=== PATIENT | female | born 1950 | race Caucasian/White ===

== ENCOUNTER 2016-09-24 05:25 | Observation (INO) | payer MEDICARE, BC ==
[~2016-09-24] VITALS: Ht 167.6 cm; Wt 42.2 kg
[~2016-09-24 05:25] MED LIST: UMEC1INH INH; VENTAER INH
[2016-09-24] MEDS ORDERED: VANCOMYCIN 1,000 MG/NS 250ML (for <70 kg) IV SCH ×2 (06:00)
[2016-09-24] MEDS ORDERED: METOPROLOL TARTRATE 25 MG TAB PO PRN (06:00)
[2016-09-24] MEDS ORDERED: metroNIDAZOLE 500 MG INJ 100 ML IV SCH (06:00)
[2016-09-24] MEDS ORDERED: INSULIN HUMAN REGULAR 1,000 UNITS/10 ML VIAL SQ PRN (06:00)
[2016-09-24] MEDS: LACTATED RINGER'S 1000 ML IV SCH (06:35)
[2016-09-24 06:47] VITALS: BP 137/76; PULSE 88; RESP 18; TEMP 97.6; O2SAT 96
[2016-09-24] MEDS ORDERED: BUPIVACAINE/EPINEPHRINE 0.25% PF 10 ML VIAL ONE (07:06)
[2016-09-24] MEDS ORDERED: BUPIVACAINE/EPINEPHRINE 0.25% PF 30 ML VIAL ONE (07:07)
[2016-09-24] MEDS ORDERED: MIDAZOLAM HCL 2 MG/2 ML VIAL ONE (07:17)
[2016-09-24] MEDS ORDERED: fentaNYL CITRATE 250 MCG/5 ML AMP ONE (07:17)
[2016-09-24] MEDS ORDERED: SUGAMMADEX SODIUM 200 MG/2 ML VIAL IV PUSH ONE ×2 (07:17)
[2016-09-24] MEDS ORDERED: ACETAMINOPHEN 1000 MG/100 ML VIAL IV ONE (07:19)
[2016-09-24] MEDS: SODIUM CHLORID 0.9% 500 ML IV SCH (07:30)
--- NOTE | 2016-09-24 08:38 | PD.OP ---
Operative Report Date of Surgery: Sep 24, 2016 Preoperative Diagnosis: biliary dyskinesia Postoperative Diagnosis: same Procedure: lap cony Anesthesia: general Surgeon: Danielito Johnson Master Control Operator(s): Keyla BOWDEN Operation and Findings: GB removed and sent to pathology. EBL minimal. Danielito Johnson MD Sep 24, 2016 08:38
[2016-09-24] MEDS ORDERED: SODIUM CHLORIDE 0.9% FLUSH 5 ML FLUSH IV FLUSH PRN (08:45)
[2016-09-24] MEDS ORDERED: ALBUTEROL SULFATE 90 MCG/ACT HFA 8 GM INHALER INH PRN (08:45)
[2016-09-24] MEDS ORDERED: ACETAMINOPHEN 1000 MG/100 ML VIAL IV SCH (08:45)
[2016-09-24] MEDS ORDERED: MORPHINE SULFATE 4 MG/ML INJ IV PUSH PRN (08:45)
[2016-09-24] MEDS ORDERED: *morphine SULFATE 8 MG/ML PERIprocedure ONLY ONE ×2 (08:50→10:55)
[2016-09-24] MEDS: SODIUM CHLOR 0.9% 1000 ML INJ 1,000 ML IV SCH (09:00)
[2016-09-24] MEDS: SODIUM CHLORIDE 0.9% FLUSH 5 ML FLUSH IV FLUSH SCH ×2 (09:00→21:00)
[2016-09-24] MEDS ORDERED: DO NOT ADM ANY ANTICOAGULANT DRUGS XX PRN (09:00)
[2016-09-24] MEDS ORDERED: *RESP: ALBUTEROL 2.5 MG/3 ML NEB (PRN) PERIprocedural Use ONLY NEB ONE (09:27)
--- NOTE | 2016-09-24 10:07 | EKG ---
Date Performed: 09/24/2016 Time Performed: 07:00:38 PTAGE: 66 years EKG: Sinus rhythm NORMAL ECG NO PREVIOUS TRACING DOCTOR: Km Carreon Interpretating Date/Time 09/24/2016 10:03:41
[2016-09-24] MEDS: ACETAMINOPHEN/HYDROcodone 325 MG/5 MG TAB PO PRN ×2 (11:45→22:12)
[2016-09-24] MEDS ORDERED: PHENYLEPH/NS 1000 MCG/10 ML SYR IV ONE (12:00)
[2016-09-24] MEDS ORDERED: PROPOFOL 200 MG/20 ML AMP IV ONE (12:00)
[2016-09-24] MEDS ORDERED: ONDANSETRON HCL 4 MG/2 ML VIAL IV PUSH ONE (12:00)
[2016-09-24] MEDS ORDERED: ePHEDrine/NS 50 MG/5 ML SYR IV ONE (12:00)
[2016-09-24] MEDS ORDERED: ONDANSETRON HCL 4 MG/2 ML VIAL ONE (12:57)
[2016-09-24] MEDS: ACETAMINOPHEN 1000 MG/100 ML VIAL IV SCH ×2 (13:00→17:47)
[2016-09-24] MEDS ORDERED: HYDROmorphone HCL PF 1 MG/ML VIAL ONE (15:20)
[2016-09-24 16:00] VITALS: BP 117/59; PULSE 55; RESP 16; TEMP 96.8; O2SAT 98
[2016-09-24 17:49] VITALS: O2SAT 98
[2016-09-24] MEDS ORDERED: ONDANSETRON HCL 4 MG/2 ML VIAL IV PUSH PRN (18:45)
[2016-09-24 20:00] VITALS: BP 98/47; PULSE 65; RESP 18; TEMP 96.8; O2SAT 96
[2016-09-25] VITALS: BP 91/57; PULSE 71; RESP 18; TEMP 96.4; O2SAT 99
[2016-09-25] MEDS: SODIUM CHLORID 0.9% 500 ML IV SCH (00:10)
[2016-09-25] MEDS: ACETAMINOPHEN 1000 MG/100 ML VIAL IV SCH ×3 (01:23→12:58)
[2016-09-25 04:00] VITALS: BP 93/53; PULSE 68; RESP 18; TEMP 96.1; O2SAT 99
[2016-09-25] MEDS: ACETAMINOPHEN/HYDROcodone 325 MG/5 MG TAB PO PRN (04:04)
[2016-09-25] MEDS: SODIUM CHLOR 0.9% 1000 ML INJ 1,000 ML IV SCH (04:05)
[2016-09-25] MEDS: LACTATED RINGER'S 1000 ML IV SCH (06:24)
[2016-09-25 08:00] VITALS: BP_SYST 86; BP_SYST 88; BP_DIAS 44; BP_DIAS 49; PULSE 70; RESP 16; TEMP 97.8; O2SAT 95
[2016-09-25] MEDS ORDERED: UMECLIDINIUM INH SCH (09:00)
[2016-09-25] MEDS: SODIUM CHLORIDE 0.9% FLUSH 5 ML FLUSH IV FLUSH SCH (09:00)
[2016-09-25 09:12] VITALS: BP 96/62
[2016-09-25 09:45] VITALS: O2SAT 95
[2016-09-25 12:00] VITALS: BP 103/48; PULSE 62; RESP 17; TEMP 97.7; O2SAT 100
[2016-09-25] MEDS ORDERED: HYDR-3533 PO (12:31)
--- NOTE | 2016-09-25 12:34 | HHI.DS ---
Discharge Summary Admission Date Sep 24, 2016 at 08:34 Discharge Date: Sep 25, 2016 Admitting Diagnosis biliary dyskinesia, COPD O2 dependent, failure to thrive Procedures Lap cony Brief History 66 year old with weight loss, malnutrition, abnormal HIDA scan, EF 20% and reproduction of pain with CCK. PE at Discharge Incisions all healing well. Hospital Course Admitted through [facility], had Lap cony, postop headache now resolved. Thought Morphine related H/A. Tolerating small amounts po, urinating normally. Wants to go home. Pt Condition on Discharge: Stable Discharge Disposition: Discharge Home Discharge Instructions DIET: Follow Instructions for: As Tolerated, No Restrictions Additional Diet Instructions: use nutritional supplements. Eat small frequent meals. Activities you can perform: Shower Only-No Bath Activities to Avoid: Strenuous Activity, Driving Danielito Johnson MD Sep 25, 2016 12:34
--- NOTE | 2016-09-26 10:46 | MP ---
cc: CARRIE PERKINS M.D. DATE OF SURGERY: 09/24/2016 PREOPERATIVE DIAGNOSIS Biliary dyskinesia. POSTOPERATIVE DIAGNOSIS Biliary dyskinesia. PROCEDURE Laparoscopic cholecystectomy. SURGEON Dr. Carrie Perkins. MEDIA CLERK DENNISE Lopez ANESTHESIA General. INDICATIONS This is a very pleasant 66-year-old woman with oxygen dependent COPD who still smokes 3 to 6 cigarettes a day, is unable to eat due to postprandial abdominal pain. She has had extensive workup and ultrasound of her gallbladder was negative. A HIDA scan showed a decreased ejection fraction of 20% and the patient had re-creation of severe pain after administration of cholecystokinin consistent with the pain she gets after eating. She was seen preoperatively by Dr. Eddi Hernandez who indicates she is high risk from a pulmonary standpoint, recommended she quit smoking and would be available if she needed assistance postoperatively. INTRAOPERATIVE FINDINGS Large floppy liver, large floppy gallbladder, gallbladder removed and sent to pathology. Normal-appearing appendix, normal appearing intestine, normal ovaries. Liver with some fibrinous type change to the liver capsule. Estimated blood loss minimal. Surgical procedure was assisted by my nurse practitioner. My ADJUNCT SOCIOLOGY PROFESSOR's presence was necessary throughout the case for assistance of adequate visualization of the operative field via laparoscopy. My nurse practitioner assisted me through the duration of the procedure. Her skill set was medically necessary to complete the procedure. During the surgical case the surgical orderly was working at the back table providing appropriate instrumentation and the nurse practitioner was directly assisting me. DESCRIPTION OF PROCEDURE IN DETAIL The patient was identified as Deneen Grace, taken to the operating room and placed in the supine position. Sequential compression devices were placed on bilateral lower extremities. Following induction of adequate general endotracheal anesthesia the patient's abdomen was prepped and draped in usual sterile fashion with Betadine. Time-out procedure was performed. Following completion of time-out procedure to everyone's satisfaction within the room 0.25% Marcaine with epinephrine was placed at each incision site. Small infraumbilical curvilinear incision was made with a scalpel and dissection continued posterior to level of midline fascia. The base of the umbilicus was retracted anteriorly. The infraumbilical fascia was incised and the peritoneum was entered with a hemostat. The applied medical balloon Turner trocar was placed in the peritoneal cavity, its balloon inflated with C02 insufflation until a level of 15 mmHg ensued. The patient was placed in a reverse Trendelenburg position. Two upper abdominal 5 mm trocars were placed in the peritoneal cavity under direct laparoscopic view after incision of the skin with scalpel. Gallbladder was immediately identified and was retracted superiorly and anteriorly. The gallbladder was removed from the gallbladder fossa in a dome down technique using the harmonic scalpel. Minimal adhesion inferiorly was identified. The cystic artery and cystic duct were isolated from surrounding tissues. The cystic artery was actually inferior to the duct. It was divided with a harmonic scalpel and as was the artery as evidenced by pulsatile change. The cystic duct was then ligated proximally and distally with 0-Vicryl Endoloops, divided between the Endoloops and the gallbladder removed from the peritoneal cavity through the infraumbilical fascial port incision site and passed off the field for pathologic evaluation. Evaluation of the gallbladder fossa demonstrated good hemostasis. There was no bilious or bloody drainage. The cystic duct ligature remained intact. The cystic arterial stump remained hemostatic. Brief laparoscopic visualization of the remainder of the intra-abdominal contents demonstrated normal appearing appendix in the right lower quadrant, normal appearing small bowel. Somewhat redundant colon with the transverse colon inferiorly far inferiorly. Both ovaries were visualized and appeared normal. No other intra-abdominal abnormalities were identified laparoscopically. Remaining local anesthetic was placed in the right upper quadrant. Trocars were removed under direct visualization, there was no evidence of bleeding from trocar sites. The abdomen was desufflated through the infraumbilical port which was then removed. Infraumbilical fascial incision was closed with interrupted inverted 0-Vicryl sutures. Port sites were irrigated copiously with saline. Skin incisions were approximated with 4-0 Monocryl subcuticular sutures. Dressings were applied, Mastisol, half-inch brown Steri-Strips. The patient tolerated the procedure without apparent complication. Sponge, needle and instrument counts were correct at the end of the case. MD JOSE MARIA Gallegos/MIKE /8:36 AM /10:29 AM
== END 2016-09-25 14:42 | disposition home or self-care (01) ==
LOC: HSDC 05:25 → HSDI 08:34 → N07A 15:47
PROVIDERS: ADMIT Surgery Trauma Surgery; ATTEND Surgery Trauma Surgery
DX: K82.8 Other specified diseases of gallbladder (principal); Z99.81 Dependence on supplemental oxygen; J44.9 Chronic obstructive pulmonary disease, unspecified; F17.210 Nicotine dependence, cigarettes, uncomplicated; E46 Unspecified protein-calorie malnutrition; R51 Headache; Z01.810 Encounter for preprocedural cardiovascular examination
CPT/HCPCS: 00790; 47562; 88304; 93005; 94664; G0378; J0131; J1170; J2250; J2270; J2370; J2405; J3010; J3370; J7030; J7050; J7120; J7613

== ENCOUNTER → 2017-05-09 | Outpatient (CLI) | payer MEDICARE, BC ==
[~2017-05-09] MED LIST changes: +VITA2000 PO
--- NOTE | 2017-05-09 17:35 | RADRPT ---
EXAM DATE/TIME: 05/09/2017 10:31 [facility] COMPARISON : No previous studies available for comparison. INDICATIONS : Patient with right renal mass for biopsy and cryoablation We have been asked to perform biopsy and cryoablation treatment of a complex cystic mass in the right kidney. The patient's MRI of the abdomen dated April 18, 2017 from [facility] was reviewed . This reveals a 15 mm complex cystic mass involving the lateral mid to lower pole cortex of the righ t kidney. The lesion does appear amenable to biopsy and concomitant cryoablation. I appreciate the opportunity to assist in the care of this patient. Mando Alvarez MD on May 09, 2017 at 16:34 Board Certified Radiologist. This report was verified electronically.
== END ==
LOC: HRAD 10:24
PROVIDERS: ATTEND Urology
DX: N28.89 Other specified disorders of kidney and ureter (principal)

== ENCOUNTER 2017-05-13 07:02 | Observation (INO) | payer MEDICARE, BC ==
[~2017-05-13] VITALS: Ht 165.1 cm; Wt 42.3 kg
[2017-05-13] VITALS (9 sets, daily range): BP systolic 94–145; BP diastolic 50–75; PULSE 60–90; RESP 16–19; TEMP 97.8–98; O2SAT 89–99
[2017-05-13] MEDS ORDERED: SODIUM CHLOR 0.9% 1000 ML INJ 1,000 ML IV SCH (07:30)
[2017-05-13 08:00] LABS: AUTOMATED NEUTROPHIL # 4.9 TH/MM3 (1.8-7.7); BASOPHIL % 0.5 % (0.0-2.0); EOSINOPHIL # 0.2 TH/MM3 (0-0.4); EOSINOPHIL % 1.9 % (0.0-4.0); HEMATOCRIT 36.9 % (35.0-46.0); HEMO FLAGS DIFF FINAL; LYMPH % 26.5 % (9.0-44.0); LYMPHOCYTE # 2.1 TH/MM3 (1.0-4.8); MEAN CELL VOLUME 94.1 FL (80.0-100.0); MEAN CORPUSCULAR HEMOGLOBIN 32.4 PG (27.0-34.0); MEAN CORPUSCULAR HGB CONC 34.5 % (32.0-36.0); MONO % 7.7 % (0.0-8.0); NEUT % 63.4 % (16.0-70.0); PLATELET COUNT 200 TH/MM3 (150-450); RED BLOOD COUNT 3.92 MIL/MM3 (4.00-5.30); RED CELL DISTRIBUTION WIDTH 11.9 % (11.6-17.2); WHITE BLOOD COUNT 7.8 TH/MM3 (4.0-11.0)
[2017-05-13] MEDS ORDERED: METOPROLOL TARTRATE 25 MG TAB PO PRN (08:00)
[2017-05-13] MEDS ORDERED: CHLORHEXIDINE GLUCONATE 2 % 1 PACK (2 CLOTHS) TOPICAL PRN (08:00)
[2017-05-13] MEDS ORDERED: SODIUM CHLORID 0.9% 500 ML IV PRN (08:00)
[2017-05-13] MEDS ORDERED: LACTATED RINGER'S 1000 ML IV PRN (08:00)
[2017-05-13] MEDS ORDERED: POVIDONE IODINE 5% (ANTISEPSIS KIT) 4 APPLICATIONS EACH NARE PRN (08:00)
[2017-05-13] MEDS ORDERED: INSULIN HUMAN REGULAR 1,000 UNITS/10 ML VIAL SQ PRN (08:00)
[2017-05-13 08:11] LABS: APTT (PATIENT) 26.4 SEC (24.3-30.1); INTERNATIONAL NORMALIZED RATIO 0.9 RATIO; PROTHROMBIN TIME - PATIENT 10.3 SEC (9.8-11.6)
[2017-05-13 08:31] LABS: BICARBONATE 33.9 MEQ/L (21.0-32.0)
[2017-05-13 08:33] LABS: POTASSIUM 4.6 MEQ/L (3.5-5.1)
[2017-05-13] MEDS ORDERED: PROPOFOL 200 MG/20 ML AMP IV ONE (09:27)
[2017-05-13] MEDS ORDERED: ONDANSETRON HCL 4 MG/2 ML VIAL IV PUSH ONE (09:27)
[2017-05-13] MEDS ORDERED: SODIUM CHLOR 0.9% 250 ML BAG IV ONE (09:27)
[2017-05-13] MEDS ORDERED: LEVOFLOXACIN 500 MG PREMIX INJ 100 ML IV SCH (09:30)
[2017-05-13] MEDS ORDERED: LIDOCAINE HCL 1% 20 ML VIAL ONE (10:19)
[2017-05-13] MEDS ORDERED: oxyCODONE/ACETAMINOPHEN 5 MG/325 MG TAB PO ONE ×2 (16:15→21:30)
[2017-05-13] MEDS ORDERED: oxyCODONE/ACETAMINOPHEN 5 MG/325 MG TAB PO PRN ×2 (16:15→22:00)
[2017-05-13 17:20] LABS: AUTOMATED NEUTROPHIL # 8.4 TH/MM3 (1.8-7.7); BASOPHIL % 0.3 % (0.0-2.0); HEMATOCRIT 33.2 % (35.0-46.0); LYMPHOCYTE # 0.7 TH/MM3 (1.0-4.8); MEAN CELL VOLUME 92.9 FL (80.0-100.0); MEAN CORPUSCULAR HEMOGLOBIN 32.6 PG (27.0-34.0); MEAN CORPUSCULAR HGB CONC 35.1 % (32.0-36.0); MONO % 1.9 % (0.0-8.0); NEUT % 89.8 % (16.0-70.0); PLATELET COUNT 319 TH/MM3 (150-450); RED BLOOD COUNT 3.58 MIL/MM3 (4.00-5.30); RED CELL DISTRIBUTION WIDTH 12.3 % (11.6-17.2); WHITE BLOOD COUNT 9.4 TH/MM3 (4.0-11.0)
[2017-05-13 17:21] LABS: HEMO FLAGS AUTO DIFF
[2017-05-13 17:48] LABS: PLATELET ESTIMATE SMEAR NORMAL (NORMAL)
[2017-05-13 17:49] LABS: PLATELET MORPHOLOGY NORMAL (NORMAL); SCAN/DIFF AUTO DIFF CONFIRMED
[2017-05-13] MEDS ORDERED: ONDANSETRON HCL 4 MG/2 ML VIAL ONE (18:12)
--- NOTE | 2017-05-13 19:07 | HHI.HP ---
[facility] Alea Gandara MD Admission Diagnosis Diagnoses: Chief Complaint: Post procedure observation. Travel History International Travel<30 Days: No Contact w/Intl Traveler <30 Da: No Traveled to Known Affected Are: No History of Present Illness Ms. Grace is a 67 year old female with a history of COPD who underwent elective cryoablation and CT guided biopsy of a right renal mass and subsequently developed severe headache, weakness, nausea and dizziness today 05/13. During a work up for abdominal pain, a CT abdomen/pelvis from March 2017 showed a 1.4cm enhancing lesion involving lower pole of the right kidney. This mass was suspicious for malignancy. A subsequent MRI abdomen indicated this renal mass to be a complex cyst. Patient was referred to Dr. Kumar (Urology) who opinioned that the lesion could potentially be a cystic renal cell carcinoma. Patient was then referred to IR for cryoablation as well as biopsy. Patient denies any chest pain, shortness of breath at the time of this interview. However, she continues to have nausea and dizziness. Denies any cough , fever, chills. Hospitalist service was consulted to admit patient for overnight observation. Review of Systems Except as stated in HPI: all other systems reviewed are Neg Past Family Social History Past Medical History COPD - O2 dependent. Past Surgical History Cholecystectomy Sep 2016 Reported Medications Incruse Ellipta inh 62.5 mcg INH daily Albuterol HFA 18 Vitamin D3 2000 units Qday. Allergies: Coded Allergies: penicillin G (Unverified Allergy, Mild, SWELLING, 05/01/17) Family History Father - ID at the age of 59. Mother - Emphysema Sister - Uterus malignancy. No history of Alzheimer's or Parkinson's. Social History She currently smokes and trying to quit smoking. Denies using alcohol or illicit drugs. Physical Exam Vital Signs Vital Signs Date Time Temp Pulse Resp B/P (MAP) Pulse Ox O2 Delivery O2 Flow Rate FiO2 05/13/17 18:15 70 19 124/74 (91) 99 05/13/17 17:15 67 18 109/73 (85) 99 05/13/17 17:11 17 05/13/17 16:15 69 18 143/72 (95) 99 05/13/17 15:45 64 19 145/50 (81) 99 05/13/17 15:15 60 18 135/60 (85) 99 05/13/17 15:00 98.0 66 18 137/75 (95) 96 05/13/17 14:45 97.3 56 12 131/58 (82) 100 Nasal Cannula 2 05/13/17 14:30 61 12 131/60 (83) 100 Nasal Cannula 2 05/13/17 14:15 96.8 57 12 132/59 (83) 100 Nasal Cannula 2 05/13/17 14:00 58 12 137/65 (89) 100 Nasal Cannula 2 05/13/17 13:45 61 12 135/64 (87) 100 Nasal Cannula 2 05/13/17 13:30 96.6 72 12 143/72 (95) 100 Nasal Cannula 2 05/13/17 07:33 89 Room Air 05/13/17 07:24 97.8 90 18 94/65 (75) 89 Physical Exam GENERAL: Thin elderly female, in no acute distress. SKIN: No rashes, ecchymoses or lesions. Warm and dry. HEAD: Atraumatic. Normocephalic. No temporal or scalp tenderness. EYES: Pupils equal round and reactive. No injection or drainage. ENT: Nose without bleeding, purulent drainage or septal hematoma. Airway patent. NECK: Trachea midline. No lymphadenopathy. Supple, nontender, no meningeal signs. CARDIOVASCULAR: Regular rate and rhythm without murmurs, gallops, or rubs. No JVD. RESPIRATORY: Moderate air entry. No appreciable wheezing, crackles. GASTROINTESTINAL: Abdomen soft, non-tender, nondistended. No guarding. MUSCULOSKELETAL: Extremities without clubbing, cyanosis, or edema. NEUROLOGICAL: Awake and alert. Cranial nerves II through XII intact. No focal neurological deficits. Laboratory Laboratory Tests Test 05/13/17 07:40 05/13/17 16:25 White Blood Count 7.8 9.4 Red Blood Count 3.92 3.58 Hemoglobin 12.7 11.7 Hematocrit 36.9 33.2 Mean Corpuscular Volume 94.1 92.9 Mean Corpuscular Hemoglobin 32.4 32.6 Mean Corpuscular Hemoglobin Concent 34.5 35.1 Red Cell Distribution Width 11.9 12.3 Platelet Count 200 319 Mean Platelet Volume 9.1 11.2 Neutrophils (%) (Auto) 63.4 89.8 Lymphocytes (%) (Auto) 26.5 8.0 Monocytes (%) (Auto) 7.7 1.9 Eosinophils (%) (Auto) 1.9 0.0 Basophils (%) (Auto) 0.5 0.3 Neutrophils # (Auto) 4.9 8.4 Lymphocytes # (Auto) 2.1 0.7 Monocytes # (Auto) 0.6 0.2 Eosinophils # (Auto) 0.2 0.0 Basophils # (Auto) 0.0 0.0 CBC Comment DIFF FINAL AUTO DIFF Differential Comment AUTO DIFF CONFIRMED Prothrombin Time 10.3 Prothromb Time International Ratio 0.9 Activated Partial Thromboplast Time 26.4 Blood Urea Nitrogen 19 Creatinine 0.81 Random Glucose 116 Calcium Level 9.3 Sodium Level 138 Potassium Level 4.6 Chloride Level 97 Carbon Dioxide Level 33.9 Anion Gap 7 Estimat Glomerular Filtration Rate 70 Platelet Estimate NORMAL Platelet Morphology Comment NORMAL Red Cell Morphology Comment NORMAL Result Diagram: 05/13/17 1625 05/13/17 0740 Caprini VTE Risk Assessment Caprini VTE Risk Assessment: Mod/High Risk (score >= 2) Caprini Risk Assessment Model Point Value = 1 Point Value = 2 Point Value = 3 Point Value = 5 Age 41-60 Minor surgery BMI > 25 kg/m2 Swollen legs Varicose veins or History of unexplained or recurrent spontaneous Oral contraceptives or hormone replacement Sepsis (< 1 month) Serious lung disease, including pneumonia (< 1 month) Abnormal pulmonary function Acute myocardial infarction Congestive heart failure (< 1 month) History of inflammatory bowel disease Medical patient at bed rest Age 61-74 Arthroscopic surgery Major open surgery (> 45 min) Laparoscopic surgery (> 45 min) Malignancy Confined to bed (> 72 hours) Immobilizing plaster cast Central venous access Age >= 75 History of VTE Family history of VTE Factor V Leiden Prothrombin [id number] Lupus anticoagulant Anticardiolipin antibodies Elevated serum homocysteine Heparin-induced thrombocytopenia Other congenital or acquired thrombophilia Stroke (< 1 month) Elective arthroplasty Hip, pelvis, or leg fracture Acute spinal cord injury (< 1 month) Prophylaxis Regimen Total Risk Factor Score Risk Level Prophylaxis Regimen 0-1 Low Early ambulation 2 Moderate Order ONE of the following: *Sequential Compression Device (SCD) *Heparin 5000 units SQ BID 3-4 Higher Order ONE of the following medications: *Heparin 5000 units SQ TID *Enoxaparin/Lovenox 40 mg SQ daily (WT < 150 kg, CrCl > 30 mL/min) *Enoxaparin/Lovenox 30 mg SQ daily (WT < 150 kg, CrCl > 10-29 mL/min) *Enoxaparin/Lovenox 30 mg SQ BID (WT < 150 kg, CrCl > 30 mL/min) AND/OR *Sequential Compression Device (SCD) 5 or more Highest Order ONE of the following medications: *Heparin 5000 units SQ TID (Preferred with Epidurals) *Enoxaparin/Lovenox 40 mg SQ daily (WT < 150 kg, CrCl > 30 mL/min) *Enoxaparin/Lovenox 30 mg SQ daily (WT < 150 kg, CrCl > 10-29 mL/min) *Enoxaparin/Lovenox 30 mg SQ BID (WT < 150 kg, CrCl > 30 mL/min) AND *Sequential Compression Device (SCD) Assessment and Plan Problem List: (1) Cyst of right kidney ICD Code: N28.1 - Cyst of kidney, acquired (2) COPD (chronic obstructive pulmonary disease) ICD Code: J44.9 - Chronic obstructive pulmonary disease, unspecified Assessment and Plan Ms. Grace is a 67 year old female with a history of COPD and recently found right renal cyst who underwent cryoablation and biopsy and subsequently developed significant headache, dizziness, nausea. - Right renal cyst - Suspicious for cystic renal cell carcinoma - Dr. Kumar has been following in the outpatient setting. - s/p cryoablation and bx. - Nausea - Dizziness - Headache - Possibly related to anesthesia. - Will continue NS @100cc/hour. - Supportive treatments with Zofran for nausea, Acetaminophen for headache. - COPD - Start DuoNeb PRN Q4hrs. Full code. SCDs. Will consider Chemical DVT prophylaxis if patient is expected to stay in the hospital for more than 24-48 hrs. Anne-Marie Caldwell DO May 13, 2017 19:07
[2017-05-13] MEDS ORDERED: SODIUM CHLORIDE 0.9% FLUSH 10 ML FLUSH IV FLUSH PRN (19:15)
[2017-05-13] MEDS ORDERED: BISACODYL 10 MG SUPP RECTAL PRN (19:15)
[2017-05-13] MEDS ORDERED: ACETAMINOPHEN 325 MG TAB PO PRN (19:15)
[2017-05-13] MEDS ORDERED: SENNOSIDES 8.6 MG TAB PO PRN (19:15)
[2017-05-13] MEDS ORDERED: LACTULOSE SYRUP 20 GM/30 ML CUP PO PRN (19:15)
[2017-05-13] MEDS ORDERED: ONDANSETRON HCL 4 MG/2 ML VIAL IVP PRN (19:15)
[2017-05-13] MEDS ORDERED: MAGNESIUM HYDROXIDE SUSP 30 ML CUP PO PRN (19:15)
[2017-05-13] MEDS ORDERED: RESP: ALBUTEROL 2.5 MG/IPRATROPIUM 0.5 MG NEB (PRN) NEB (19:15)
[2017-05-13] MEDS ORDERED: NALOXONE HCL 0.4 MG/ML AMP IV PRN (19:15)
[2017-05-13] MEDS ORDERED: PROCHLORPERAZINE 25 MG SUPP RECTAL PRN (19:15)
[2017-05-13] MEDS ORDERED: DO NOT ADM ANY ANTICOAGULANT DRUGS PRN (20:45)
[2017-05-13] MEDS: DOCUSATE SODIUM 50 MG/SENNA 8.6 MG TAB PO SCH (21:00)
[2017-05-13] MEDS: SODIUM CHLORIDE 0.9% FLUSH 10 ML FLUSH IV FLUSH SCH (21:00)
[2017-05-13] MEDS: SODIUM CHLOR 0.9% 1000 ML INJ 1,000 ML IV SCH (21:24)
[2017-05-14 04:09] VITALS: BP 118/64; PULSE 98; RESP 18; TEMP 97.9; O2SAT 95
[2017-05-14 07:37] VITALS: O2SAT 92
[2017-05-14 08:44] VITALS: BP 96/47; PULSE 56; RESP 16; TEMP 98.6; O2SAT 99
[2017-05-14 08:56] LABS: AUTOMATED NEUTROPHIL # 3.7 TH/MM3 (1.8-7.7); BASOPHIL % 0.4 % (0.0-2.0); EOSINOPHIL # 0.1 TH/MM3 (0-0.4); EOSINOPHIL % 1.3 % (0.0-4.0); HEMATOCRIT 30.3 % (35.0-46.0); HEMO FLAGS DIFF FINAL; LYMPH % 31.3 % (9.0-44.0); MEAN CELL VOLUME 94.4 FL (80.0-100.0); MEAN CORPUSCULAR HEMOGLOBIN 32.3 PG (27.0-34.0); MEAN CORPUSCULAR HGB CONC 34.2 % (32.0-36.0); MONO % 9.7 % (0.0-8.0); NEUT % 57.3 % (16.0-70.0); PLATELET COUNT 154 TH/MM3 (150-450); RED BLOOD COUNT 3.21 MIL/MM3 (4.00-5.30); RED CELL DISTRIBUTION WIDTH 11.8 % (11.6-17.2); WHITE BLOOD COUNT 6.5 TH/MM3 (4.0-11.0)
[2017-05-14] MEDS: SODIUM CHLOR 0.9% 1000 ML INJ 1,000 ML IV SCH (08:59)
[2017-05-14] MEDS: DOCUSATE SODIUM 50 MG/SENNA 8.6 MG TAB PO SCH (09:00)
[2017-05-14] MEDS: SODIUM CHLORIDE 0.9% FLUSH 10 ML FLUSH IV FLUSH SCH (09:00)
[2017-05-14 09:06] LABS: BICARBONATE 30.4 MEQ/L (21.0-32.0); POTASSIUM 3.9 MEQ/L (3.5-5.1)
[2017-05-14 11:27] VITALS: BP 104/51; PULSE 64; RESP 16; TEMP 98; O2SAT 97
--- NOTE | 2017-05-14 12:05 | HHI.PR ---
Subjective Remarks Follow up for right renal cyst s/p bx, cryoablation. Patient reports no N/V but reports persistent headache. She wants to go home and feels that as long as she stays in the hospital, she will have headache. No fever, chills. Objective Vitals Vital Signs Date Time Temp Pulse Resp B/P (MAP) Pulse Ox O2 Delivery O2 Flow Rate FiO2 05/14/17 11:27 98.0 64 16 104/51 (68) 97 05/14/17 09:20 Nasal Cannula 3.00 05/14/17 08:44 98.6 56 16 96/47 (63) 99 05/14/17 07:37 92 Nasal Cannula 3.00 05/14/17 04:09 97.9 98 18 118/64 (82) 95 05/14/17 03:33 Nasal Cannula 3.00 05/13/17 23:49 98.0 68 16 105/60 (75) 98 05/13/17 20:39 98.0 67 16 102/57 (72) 98 05/13/17 18:15 70 19 124/74 (91) 99 05/13/17 17:15 67 18 109/73 (85) 99 05/13/17 17:11 17 05/13/17 16:15 69 18 143/72 (95) 99 05/13/17 15:45 64 19 145/50 (81) 99 05/13/17 15:15 60 18 135/60 (85) 99 05/13/17 15:00 98.0 66 18 137/75 (95) 96 05/13/17 14:45 97.3 56 12 131/58 (82) 100 Nasal Cannula 2 05/13/17 14:30 61 12 131/60 (83) 100 Nasal Cannula 2 05/13/17 14:15 96.8 57 12 132/59 (83) 100 Nasal Cannula 2 05/13/17 14:00 58 12 137/65 (89) 100 Nasal Cannula 2 05/13/17 13:45 61 12 135/64 (87) 100 Nasal Cannula 2 05/13/17 13:30 96.6 72 12 143/72 (95) 100 Nasal Cannula 2 I/O 05/13/17 05/13/17 05/13/17 05/14/17 05/14/17 05/14/17 07:00 15:00 23:00 07:00 15:00 23:00 Intake Total 380 ml 800 ml Balance 380 ml 800 ml Intake IV Total 380 ml 800 ml Result Diagram: 05/14/1781305/14/17813 Objective Remarks GENERAL: AOx3, NAD SKIN: Warm and dry. HEAD: Normocephalic. EYES: No scleral icterus. No injection or drainage. NECK: Supple, trachea midline. No JVD or lymphadenopathy. CARDIOVASCULAR: Regular rate and rhythm without murmurs, gallops, or rubs. RESPIRATORY: Moderate air entry, No appreciable wheezing. GASTROINTESTINAL: Abdomen soft, non-tender, nondistended. MUSCULOSKELETAL: No cyanosis, or edema. BACK: Nontender without obvious deformity. No CVA tenderness. Procedures Right renal cyst - cryoablation, bx. A/P Problem List: (1) Cyst of right kidney ICD Code: N28.1 - Cyst of kidney, acquired (2) COPD (chronic obstructive pulmonary disease) ICD Code: J44.9 - Chronic obstructive pulmonary disease, unspecified Assessment and Plan Ms. Grace is a 67 year old female with a history of COPD and recently found right renal cyst who underwent cryoablation and biopsy and subsequently developed significant headache, dizziness, nausea. - Right renal cyst - Suspicious for cystic renal cell carcinoma - Dr. Kumar has been following in the outpatient setting. - s/p cryoablation and bx. - Nausea - Dizziness - Headache - Offered Fioricet. However, patient does not want to take any other meds. Wants to go home. - Supportive treatments with Zofran for nausea, Acetaminophen for headache. - Discussed with IR - Dr. Alvarez who cleared for discharge from his standpoint. - COPD - DuoNeb PRN Q4hrs. Full code. Discharge patient to home Condition on discharge: Improved Regular Diet as tolerated Ad Flory activity Rx written: None. Follow-up with primary care physician within one week. IR will see her next week. Anne-Marie Caldwell DO May 14, 2017 12:05
--- NOTE | 2017-05-16 14:29 | RADRPT ---
EXAM DATE/TIME: 05/13/2017 11:13 [facility] COMPARISON: No previous studies available for comparison. INDICATIONS : Right renal mass BIOPSY SITE: Right kidney Anesthesia and pain control was provided by the Anesthesia department. Prophylactic antibiotics were administered with appropriate pre-procedure timing. DEVICE(S): 1.) 16 gauge Temno core biopsy needle MEDICAL HISTORY : Chronic obstructive pulmonary disease. SURGICAL HISTORY : Cholecystectomy ENCOUNTER: Initial ACUITY: 1 day PAIN SCORE: 0/10 LOCATION: Right flank A total of one core specimen(s) were obtained and sent to the laboratory for pathologic evaluation. PROCEDURE: 1. CT guided renal biopsy. Prior to the procedure informed consent was obtained. Any appropriate prior imaging studies were rev iewed. Using automated exposure control and adjustment of the mA and/or kV according to patient size, radiat ion dose was kept as low as reasonably achievable to obtain optimal diagnostic quality images. DICOM format image data is available electronically for review and comparison. The site was prepped in a sterile fashion. Full sterile technique was used, including cap, mask, daniel rile gloves and gown and a large sterile sheet. Hand hygiene and 2% chlorhexidine and/or betadine/al cohol prep was utilized per protocol for cutaneous antisepsis. The skin and subcutaneous tissues wer e infiltrated with local anesthetic solution. With CT guidance the previously identified target was localized. Biopsy was performed using the presc ribed needle as above. Adequate hemostasis was obtained with compression at the puncture site. Follow-up CT scan reveals no hemorrhage. The patient tolerated the procedure well and there were no complications. The patient was returned to the Radiology Outpatient Unit in stable condition. CONCLUSION: Uncomplicated CT guided biopsy. The pathology results indicated presence of clear cells suspicious for renal cell carcinoma, however quantity insufficient for definitive diagnosis. 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 Mando Alvarez MD on May 16, 2017 at 14:13 Board Certified Radiologist. This report was verified electronically.
--- NOTE | 2017-05-16 14:35 | RADRPT ---
EXAM DATE/TIME: 05/13/2017 11:13 INDICATIONS : Right renal mass Anesthesia and pain control was provided by the Anesthesia department. DEVICE(S): 1.) 16 gauge Cryoablation probe MEDICAL HISTORY : Chronic obstructive pulmonary disease. SURGICAL HISTORY : Cholecystectomy ENCOUNTER: Initial ACUITY: 1 day PAIN SCORE: 0/10 LOCATION: Right flank PROCEDURE : 1. CT guided cryoablation. Under sterile conditions and using aseptic technique with CT guidance the mass was localized and sati sfactory approach was taken to access the lesion. Using automated exposure control and adjustment of the mA and/or kV according to patient size, radiation dose was kept as low as reasonably achievable to obtain optimal diagnostic quality images. DICOM format image data is available electronically for review and comparison. wunderloop Cryoprobes were employed using percutaneous technique employing the prescribed probes. A freeze-thaw, freeze-thaw technique was employed and serial imaging demonstrated an ice ball encomp assing the entire lesion. Post procedure images demonstrate expected postoperative changes without e vidence of hematoma. CONCLUSION: Uncomplicated cryoablation as above. Mando Alvarez MD on May 16, 2017 at 14:28 Board Certified Radiologist. This report was verified electronically.
== END 2017-05-14 13:56 | disposition home or self-care (01) ==
LOC: HRAD 07:02 → HRIP 07:03 → HRAD 19:34 → UNDOADMOB 19:35 → NEPFCDU 19:35 → NEDA 19:35
PROVIDERS: ADMIT Hospitalist; ATTEND Hospitalist
DX: N28.89 Other specified disorders of kidney and ureter (principal); N28.1 Cyst of kidney, acquired; J44.9 Chronic obstructive pulmonary disease, unspecified
CPT/HCPCS: 50200; 50593; 77012; 77013; 80048; 85025; 85610; 85730; 88305; 96360; 96365; C2618; G0378; J2405; J3010; J7030; J7040; J7050; J7120; 96361

== ENCOUNTER 2018-04-18 05:46 | Inpatient (IN) ==
[2018-04-18] MEDS ORDERED: ALPRAZolam 0.5 MG Tablet PO ONE (06:19)
[2018-04-18 06:43] LABS: Baso # (Auto) 0.1 th/mm3 (0.0-0.2); Baso % (Auto) 0.3 % (0.0-2.0); Eos % (Auto) 0.2 % (0.0-4.0); Hematocrit 33.7 % (35.0-46.0); Hemoglobin 11.1 gm/dL (11.6-15.3); Lymph # (Auto) 1.8 th/mm3 (1.0-4.8); Lymph % (Auto) 9.6 % (9.0-44.0); Mean Corpuscular HGB Conc 32.8 % (32.0-36.0); Mean Corpuscular Volume 100.5 fL (80.0-100.0); Mean Platelet Volume 8.1 fL (7.0-11.0); Mono # (Auto) 0.3 th/mm3 (0.0-0.9); Mono % (Auto) 1.6 % (0.0-8.0); Neut # (Auto) 16.9 th/mm3 (1.8-7.7); Neut % (Auto) 88.3 % (16.0-70.0); Platelet Count 279 th/mm3 (150-450); Red Blood Count 3.35 mil/mm3 (4.00-5.30); Red Cell Distribution Width 15.4 % (11.6-17.2); White Blood Count 19.1 th/mm3 (4.0-11.0)
--- NOTE | 2018-04-18 06:52 | XR ---
EXAM DATE: 04/18/2018 6:40 AM EDT AGE/SEX: 68 years / Female INDICATIONS: Dyspnea. CLINICAL DATA: This is the patient's initial encounter. Patient reports that signs and symptoms have been present for 1 day and indicates a pain score of 0/10. MEDICAL/SURGICAL HISTORY: Chronic obstructive pulmonary disease. Cholecystectomy. COMPARISON: [facility], CT CHEST W/O CONTRAST, 09/05/2017. . FINDINGS: Portable AP view of the chest demonstrates a normal size cardiac silhouette. There is dense airspace opacity/consolidation in the left mid and peripheral lower lung zone. This finding is new since the p rior study. No pneumothorax is visualized and no pleural effusion is seen. There is stable lucency in the upper lung zones characteristic of emphysema. Bones and soft tissues demonstrate no acute abnorm ality. CONCLUSION: 1. There is severe airspace consolidation in the left mid and lower lung zone. This could represent a pneumonia in the appropriate clinical setting. Recommend follow-up imaging following appropriate tr eatment to confirm resolution. 2. Stable background lung changes characteristic of emphysema. Electronically signed by: Mando Yousif MD 04/18/2018 6:51 AM EDT
[2018-04-18 07:10] LABS: Albumin 3.5 g/dL (3.4-5.0); Anion Gap 6 meq/L (5-15); Aspartate Aminotransferase 21 U/L (15-37); Blood Urea Nitrogen 24 mg/dL (7-18); Calcium 9.1 mg/dL (8.5-10.1); Carbon Dioxide 44.5 meq/L (21.0-32.0); Chloride 86 meq/L (98-107); Glomerular Filtration Rate 86 mL/min (>89); Glucose,Random 177 mg/dL (74-106); Potassium 3.8 meq/L (3.5-5.1); Sodium 136 meq/L (136-145)
[2018-04-18 07:17] LABS: Alanine Aminotransferase 31 U/L (10-53); Alkaline Phosphatase 103 U/L (45-117); Total Protein 6.5 g/dL (6.4-8.2)
[2018-04-18] MEDS ORDERED: Sod Chloride 0.9% Inj 1,000 ML IV.SIG ONE (07:49)
[2018-04-18] MEDS ORDERED: Azithromycin Inj 500 MG in Sodium Chlor 0.9% Inj 250 ML IV.SIG ONE (07:51)
--- NOTE | 2018-04-18 07:59 | ED ---
HPI General Chief complaint: Fall Stated complaint: Body Pain Time Seen by Provider: 04/18/18 07:34 Source: patient Mode of arrival: ambulatory Limitations: no limitations History of Present Illness HPI Narrative: 68-year-old female complaint generalized malaise and weakness and chest pain. Patient has history of COPD on hospice. Patient got up last night around 4 AM and fell on the floor last night. Patient started having chest pain across the anterior chest wall last night. Patient states that gave patient nitroglycerin and morphine with some relief of the pain. Patient denies any injury from the fall. Patient denies headache. Patient denies any neck pain. Patient denies any shortness of breath coughing congestion. Patient denies abdominal pain. Patient denies any focal weakness or numbness of the extremity. Patient has history of intermittent chest pain recently. Hospice physician gave patient prescription for isosorbide and nitroglycerin which she has been taking as directed. Patient also newly diagnosed with hyperglycemia and put on metformin recently. Complaint: generalized weakness Onset (ago): day(s) Duration: constant Location: generalized Migration: none Severity: moderate Severity scale (1-10): 5 Relieving factors: none Exacerbating factors: none Related Data Home Medications Medication Instructions Recorded Confirmed alprazolam 0.5 mg PO Q4HR PRN 04/18/18 04/18/18 dexamethasone 8 mg PO DAILY 04/18/18 04/18/18 furosemide 20 mg PO DAILY 04/18/18 04/18/18 isosorbide mononitrate 30 mg PO HS 04/18/18 04/18/18 lorazepam 1 mg PO HS 04/18/18 04/18/18 metformin 500 mg PO BID 04/18/18 04/18/18 nitroglycerin 0.4 mg SUBLINGUAL Q5-15M PRN 04/18/18 04/18/18 spironolactone 25 mg PO DAILY 04/18/18 04/18/18 Allergies Allergy/AdvReac Type Severity Reaction Status Date / Time penicillin G Allergy Mild SWELLING Verified 04/18/18 05:58 Review of Systems ROS: all other systems reviewed are negative [facility] Medical History Medical History Anxiety (Acute) COPD (chronic obstructive pulmonary disease) (Acute) Dyspnea (Acute) Edema (Acute) Social History Social History Substance History: No History of Abuse Smoking Status: Former smoker How Often Do You Have a Drink Containing Alcohol: Never Recent Travel in [place] within the Last 8 Weeks: No Recent Out of Country Travel within the Last 8 Weeks: No Immunization History Tetanus Immunization: Unsure Hx Influenza Vaccine This Season: Yes Exam Narrative Exam Narrative: GENERAL: Well-nourished, well-developed patient. SKIN: Focused skin assessment warm/dry. HEAD: Normocephalic. EYES: No scleral icterus. No injection or drainage. NECK: Supple, trachea midline. No JVD or lymphadenopathy. CARDIOVASCULAR: Regular rate and rhythm without murmurs, gallops, or rubs. RESPIRATORY: Breath sounds equal bilaterally. No accessory muscle use. Few rhonchi left lung. No wheezes. GASTROINTESTINAL: Abdomen soft, non-tender, nondistended. MUSCULOSKELETAL: No cyanosis, or edema. BACK: Nontender without obvious deformity. No CVA tenderness. Neurologic exam: Patient with lethargy however answer questions appropriately. Patient moves all extremity well. No obvious focal neurological deficit. Course Initial Documented Vital Signs Temperature 97.6 F 04/18/18 05:49 Pulse Rate 121 H 04/18/18 05:49 Respiratory Rate 22 04/18/18 05:49 Blood Pressure 141/69 H 04/18/18 05:49 Pulse Oximetry 87 L 04/18/18 05:49 Last Documented Vital Signs Temperature 97.8 F 04/18/18 07:00 Pulse Rate 107 H 04/18/18 07:00 Respiratory Rate 22 04/18/18 07:00 Blood Pressure 129/67 04/18/18 07:00 Pulse Oximetry 97 04/18/18 07:00 Medical Decision Making [facility] Narrative Medical decision making narrative: 68-year-old female with history of COPD on hospice complaint generalized weakness and fell last night. Patient has intermittent chest pain recently including after the fall last night. Chest x- ray shows consolidation left lung. Normal saline solution 1 L IV bolus. Vancomycin 1 g IV. Zithromax 5 mg IV. Differential Diagnosis Differential Diagnosis: Differential diagnosis including sepsis, pneumonia, angina, CT, PE, pneumothorax. Lab Data Result diagrams: 04/18/18 06:10 04/18/18 06:10 Lab Results 04/18/18 04/18/18 04/18/18 Range/Units 06:10 06:10 06:10 WBC 19.1 H (4.0-11.0) th/mm3 RBC 3.35 L (4.00-5.30) mil/mm3 Hgb 11.1 L (11.6-15.3) gm/dL Hct 33.7 L (35.0-46.0) % MCV 100.5 H (80.0-100.0) fL MCH 33.0 (27.0-34.0) pg MCHC 32.8 (32.0-36.0) % RDW 15.4 (11.6-17.2) % Plt Count 279 (150-450) th/mm3 MPV 8.1 (7.0-11.0) fL Neut % (Auto) 88.3 H (16.0-70.0) % Lymph % (Auto) 9.6 (9.0-44.0) % [place] % (Auto) 1.6 (0.0-8.0) % Eos % (Auto) 0.2 (0.0-4.0) % Baso % (Auto) 0.3 (0.0-2.0) % Neut # (Auto) 16.9 H (1.8-7.7) th/mm3 Lymph # (Auto) 1.8 (1.0-4.8) th/mm3 [place] # (Auto) 0.3 (0.0-0.9) th/mm3 Eos # (Auto) 0.0 (0.0-0.4) th/mm3 Baso # (Auto) 0.1 (0.0-0.2) th/mm3 WBC Differential . Differential Comment Auto diff final Sodium 136 (136-145) meq/L Potassium 3.8 (3.5-5.1) meq/L Chloride 86 L (98-107) meq/L Carbon Dioxide 44.5 H (21.0-32.0) meq/L Anion Gap 6 (5-15) meq/L BUN 24 H (7-18) mg/dL Creatinine 0.68 (0.50-1.00) mg/dL Estimated GFR 86 L (>89) mL/min Random Glucose 177 H (74-106) mg/dL Calcium 9.1 (8.5-10.1) mg/dL Total Bilirubin 0.7 (0.2-1.0) mg/dL AST 21 (15-37) U/L ALT 31 (10-53) U/L Alkaline Phosphatase 103 (45-117) U/L Troponin I Less than 0.02 L (0.02-0.05) ng/mL B-Natriuretic Peptide 22 (0-100) pg/mL Total Protein 6.5 (6.4-8.2) g/dL Albumin 3.5 (3.4-5.0) g/dL Imaging Data Radiologist's impression: Chest X-Ray 04/18/18 06:12 CONCLUSION: 1. There is severe airspace consolidation in the left mid and lower lung zone. This could represent a pneumonia in the appropriate clinical setting. Recommend follow-up imaging following appropriate treatment to confirm resolution. 2. Stable background lung changes characteristic of emphysema. Discharge Plan Discharge Disposition Patient Disposition: 30 Still Patient Discharge Details Diagnosis: Sepsis, Pneumonia, Chest pain Physicians Team ED Provider: Bruno Jacobson Primary Care Provider: [facility] Rxs /Orders / Referrals /Forms Prescriptions: No Action metformin 500 mg Tablet 500 mg PO BID RF: 0 isosorbide mononitrate 30 mg Tablet Extended Release 24 Hr 30 mg PO HS RF: 0 spironolactone 25 mg Tablet 25 mg PO DAILY RF: 0 alprazolam 0.5 mg Tablet 0.5 mg PO Q4HR PRN (Reason: Anxiety) RF: 0 dexamethasone 4 mg Tablet 8 mg PO DAILY RF: 0 furosemide 20 mg Tablet 20 mg PO DAILY RF: 0 lorazepam 1 mg Tablet 1 mg PO HS RF: 0 nitroglycerin 0.4 mg Tablet, Sublingual 0.4 mg SUBLINGUAL Q5-15M PRN (Reason: Chest Pain) RF: 0 Discharge Interventions Interventions: Vital Signs Last Done: 04/18/18 07:00 Status ED Status: With Doctor
[2018-04-18] MEDS ORDERED: Vancomycin Inj 1 GM/200 ML PIGGYBACK IV.SIG SCH (08:00)
[2018-04-18] MEDS ORDERED: Vancomycin Inj 1,000 MG in Sodium Chlor 0.9% Inj 250 ML IV.SIG ONE (09:00)
[2018-04-18] MEDS ORDERED: ALPRAZolam 0.5 MG Tablet PO PRN (09:24)
--- NOTE | 2018-04-18 09:25 | P.HPFP ---
History of Present Illness Primary Care Physician: Hospice <Helena Gutierrez - 04/19/18 10:27> Hospice <Yazmin Rodriguez - 04/18/18 09:24> History of Present Illness: 68 year old female with the PMH of severe COPD diagnosed in August with 17% lung capacity, on Hospice since September ( determined 6 months to live), presented to the ED due to an unwitnessed fall that happened this morning at 4am with associated chest pain. The majority of this history was given by the sister as patient was unable to communicate due to excessive work of breathing. Per sister, she states that she was staying over the patients house that night and around 4:15 am, heard a call from her sister and saw that she had fell to the ground as she was trying to sit in her chair in the living room. The patient was alert at the time, stated that she did not hit her head, only hit her hip, and that she did not lose any consciousness. The sister then called the [facility] express hotline, who arrived at the house and helped the patient get back into her living room chair. After sitting in the chair, the patient then started complaining of substernal chest pain, the sister then gave her 3 doses of nitroglycerin alongside morphine which have been provided by the hospice which did not seem to relieve her chest pain. She was then brought to the emergency room for further evaluation due to the chest pain. This is her 6th fall since the end of February this year. Per sister she states that she gets up in the middle of the night and usually falls between the hours of 2 and 6 AM when she gets up to walk from her bedroom to her living room. The patient lives at home by herself, but the sister comes by daily to help her. She has also been having increased confusion over the past couple of weeks, today being the worse as she is unable to fully engage in conversation due to work of breathing. Over the past week she has been complaining of chest congestion with mucus but denies any cough. She is on 5 L of oxygen at home for 24 hours and takes nebulized medications. She has been eating well but not drinking adequately per sister (1 quart a day). bowel movements and urinary frequency have been normal. Last Hospitalizations was a couple weeks ago at [facility] due to a fall and the patient had a right eye abrasion. She was recently started on Lasix and spironolactone 3 days ago due to leg swelling that started a couple weeks ago. She has been eating well but not drinking adequately per sister ( 1 quart a day). Allergies: Penicillin (unsure of reaction per sister) Hospice physician: Dr. Weathers Return Clerk: Dr Rodríguez <Yazmin Rodriguez - 04/18/18 12:49> - Diagnosis (1) Sepsis (2) Pneumonia (3) Fall (4) Chest pain (5) Edema (6) Anxiety (7) Hyperglycemia (8) Hospice care (9) Nutrition, metabolism, and development symptoms (10) DVT prophylaxis <BrendaHelena M - 04/19/18 10:27> (1) Sepsis (2) Pneumonia (3) Fall (4) Chest pain (5) Edema (6) Anxiety (7) Hyperglycemia (8) Hospice care (9) Nutrition, metabolism, and development symptoms (10) DVT prophylaxis <Yazmin Rodriguez 04/18/18 12:53> Inpatient Certification: I certify that the inpatient services were ordered in accordance with Medicare regulations governing the order. This includes certification that hospital inpatient services are reasonable and necessary and in the case of services not specified as inpatient-only under 42 CFR 419.22(n), that they are appropriately provided as inpatient services in accordance to with the 2-midnight benchmark under 43 CFR 412.3(e) <Helena Gutierrez - 04/19/18 10:27> I certify that the inpatient services were ordered in accordance with Medicare regulations governing the order. This includes certification that hospital inpatient services are reasonable and necessary and in the case of services not specified as inpatient-only under 42 CFR 419.22(n), that they are appropriately provided as inpatient services in accordance to with the 2-midnight benchmark under 43 CFR 412.3(e) <Yazmin Rodriguez - 04/18/18 09:24> Review of Systems unobtainable due to mental status <Yazmin Rodriguez 04/18/18 09:38> PMFSH - History History Provided By: Patient, Family Member <Yazmin Rodriguez 04/18/18 09:24> - Medical History Medical History: Medical History (Last Updated 04/18/18 @ 12:34 by Yazmin Rodriguez MD, R1) Anxiety COPD (chronic obstructive pulmonary disease) Dyspnea Edema Hyperglycemia Neuropathy <Helena Gutierrez - 04/19/18 10:27> Medical History (Last Updated 04/18/18 @ 12:34 by Yazmin Rodriguez MD, R1) Anxiety COPD (chronic obstructive pulmonary disease) Dyspnea Edema Hyperglycemia Neuropathy <Yamzin Rodriguez - 04/18/18 12:49> - Family History Family History: Family History (Last Updated 04/18/18 @ 12:34 by Yazmin Rodriguez MD, R1) Sister Diabetes Uterine cancer <Helena Gutierrez - 04/19/18 10:27> Family History (Last Updated 04/18/18 @ 12:34 by Yazmin Rodriguez MD, R1) Sister Diabetes Uterine cancer <Yazmin Rodriguez - 04/18/18 12:51> - Tobacco History Tobacco Use In Past 30 Days: No <Yazmin Rodriguez - 04/18/18 09:24> Smoking Status: Former smoker <Yazmin Rodriguez - 04/18/18 09:24> Packs Per Day: 0.5 (quit one month ago) <Yazmin Rodriguez - 04/18/18 09:24> - Alcohol History How Often Do You Have a Drink Containing Alcohol: Never <Yazmin Rodriguez - 07/26 09:24> - Substance Use History Substance History: No History of Abuse <Yazmin Rodriguez - 04/18/18 09:24> - Travel History Recent Travel in the [facility] Within the Last 8 Weeks: No <Yazmin Rodriguez - 09:24> Recent Travel Out of the Country Within the Last 8 Weeks: No <Yazmin Rodriguez - 04/18/18 09:24> - Immunization History Tetanus Immunization: Unsure <Yazmin Rodriguez - 04/18/18 09:24> Hx Influenza Vaccine This Season: Yes <Yazmin Rodriguez - 04/18/18 09:24> Medications and Allergies Allergies Allergy/AdvReac Type Severity Reaction Status Date / Time penicillin G Allergy Mild SWELLING Verified 04/18/18 05:58 <Helena Gutierrez - 04/19/18 10:27> Home Medications Medication Instructions Recorded Confirmed Type alprazolam 0.5 mg PO Q4HR PRN 04/18/18 04/18/18 History dexamethasone 8 mg PO DAILY 04/18/18 04/18/18 History furosemide 20 mg PO DAILY 04/18/18 04/18/18 History isosorbide mononitrate 30 mg PO HS 04/18/18 04/18/18 History lorazepam 1 mg PO HS 04/18/18 04/18/18 History metformin 500 mg PO BID 04/18/18 04/18/18 History nitroglycerin 0.4 mg SUBLINGUAL Q5-15M PRN 04/18/18 04/18/18 History spironolactone 25 mg PO DAILY 04/18/18 04/18/18 History <Helena Gutierrez M - 04/19/18 10:27> Active Medications: Active Medications Vancomycin HCl 1,000 mg/ (Sodium Chloride) 250 mls @ 200 mls/hr IV.SIG ONCE ONE Stop: 04/18/18 10:14 Last Admin: 04/18/18 09:11 Dose: 200 mls/hr <Yazmin Rodriguez - 04/18/18 09:24> Exam Vital signs: Vital Signs 04/18/18 10:53 04/18/18 11:00 04/18/18 11:15 Temperature 98 F Pulse Rate 108 H 114 H Respiratory Rate 24 16 Blood Pressure 109/58 L Pulse Oximetry 92 L 96 04/18/18 14:00 04/18/18 15:43 04/18/18 17:01 Temperature 97.9 F 97.7 F Pulse Rate 116 H 115 H 116 H Respiratory Rate 26 H 19 30 H Blood Pressure 117/50 L 89/58 L Pulse Oximetry 89 L 82 L 90 L 04/18/18 17:09 04/18/18 18:00 04/18/18 19:25 Temperature Pulse Rate 95 H Respiratory Rate Blood Pressure 135/90 Pulse Oximetry 83 L 90 L 04/18/18 20:00 Temperature 97.6 F Pulse Rate 66 Respiratory Rate 22 Blood Pressure Pulse Oximetry 87 L Intake & Output 04/18/18 04/19/18 04/19/18 18:59 06:59 18:59 Intake Total 1600 / 1600 Output Total 100 / 100 Balance 1500 / 1500 Intake: IV 1600 / 1600 Azithromycin Inj 500 MG In NS 250 / 250 Inj 250 ML @ 250 mls/hr IV.SIG ONCE ONE Rx#:[id number] Azactam Inj 2 GM In NS Inj 100 100 / 100 ML @ 200 mls/hr IV.SIG Q8H NICOLASA Rx#:[id number] NS Inj 1,000 ML @ Wide Open IV. 1000 / 1000 SIG BOLUS ONE Rx#:[id number] Vancomycin Inj 1,000 MG In NS 250 / 250 Inj 250 ML @ 200 mls/hr IV.SIG ONCE ONE Rx#:[id number] Output: Urine 100 / 100 Other: # Voids 1 <BrendaHelena Haja - 04/19/18 10:27> Vital Signs 04/18/18 05:49 04/18/18 06:19 04/18/18 06:21 Temperature 97.6 F Pulse Rate 121 H 116 H Respiratory Rate 22 24 Blood Pressure 141/69 H Pulse Oximetry 87 L 92 L 04/18/18 07:00 Temperature 97.8 F Pulse Rate 107 H Respiratory Rate 22 Blood Pressure 129/67 Pulse Oximetry 96 Intake & Output 04/17/18 04/18/18 04/18/18 18:59 06:59 18:59 Weight 56.699 kg <Yazmin Rodriguez - 04/18/18 09:24> Narrative: Patient currently in respiratory distress, with abdominal breathing, on 5 L of oxygen, unable to communicate during physical exam due to work of breathing. <Yazmin Rodriguez - 04/18/18 12:49> - Constitutional no acute distress <Yazmin Rodriguez - 04/18/18 11:54> - Routine HEENT Exam Head: Present: normocephalic, atraumatic <Yazmin Rodriguez - 04/18/18 11:54> - Routine Respiratory Exam Present: accessory muscle use, crackles, diminished air movement <Yazmin Rodriguez - 04/18/18 11:54> Comments: At the lung bases bilaterally <Yazmin Rodriguez - 04/18/18 11:54> - Routine Cardiovascular Exam Present: tachycardia <Yazmin Rodriguez - 04/18/18 11:54> - Routine Abdominal Exam Present: soft, normoactive bowel sounds. Absent: tenderness, distended <Yazmin Rodriguez - 04/18/18 11:54> - Routine Extremities Exam Present: edema <Yazmin Rodriguez - 04/18/18 11:54> Comments: 4+ in the feet and lower extremities bilaterally <Yazmin Rodriguez - 04/18/18 11:54> Results - Labs Result diagrams: 04/18/18 06:10 04/18/18 06:10 <BrendaSinHelena M - 04/19/18 10:27> Abnormal lab results 04/18/18 04/18/18 04/18/18 Range/Units 10:50 11:00 11:08 Lactic Acid 2.4 H (0.4-2.0) mmol/L Procalcitonin 16.62 H (0.00-0.08) ng/mL Urine Clarity Hazy H (Clear) Urine Protein 30 H (Neg-Trace) mg/dL Urine Urobilinogen 2.0 H (Less than 2) mg/dL Urine Mucus Few H (Occasional) /lpf 04/18/18 Range/Units 16:10 Lactic Acid 6.8 H* (0.4-2.0) mmol/L Procalcitonin (0.00-0.08) ng/mL Urine Clarity (Clear) Urine Protein (Neg-Trace) mg/dL Urine Urobilinogen (Less than 2) mg/dL Urine Mucus (Occasional) /lpf Cardiac Enzymes 04/18/18 Range/Units 10:50 Troponin I 0.04 (0.02-0.05) ng/mL Urine 04/18/18 Range/Units 11:00 Urine Color Yellow (Yellw/Straw) Urine Clarity Hazy H (Clear) Urine pH 5.0 (5.0-8.5) Ur Specific [place] 1.020 (1.002-1.035) Urine Protein 30 H (Neg-Trace) mg/dL Urine Glucose (UA) 50 (Negative) mg/dL <Helena Gutierrez - 04/19/18 10:27> Abnormal lab results 04/18/18 04/18/18 Range/Units 06:10 06:10 WBC 19.1 H (4.0-11.0) th/mm3 RBC 3.35 L (4.00-5.30) mil/mm3 Hgb 11.1 L (11.6-15.3) gm/dL Hct 33.7 L (35.0-46.0) % MCV 100.5 H (80.0-100.0) fL Neut % (Auto) 88.3 H (16.0-70.0) % Neut # (Auto) 16.9 H (1.8-7.7) th/mm3 Chloride 86 L (98-107) meq/L Carbon Dioxide 44.5 H (21.0-32.0) meq/L BUN 24 H (7-18) mg/dL Estimated GFR 86 L (>89) mL/min Random Glucose 177 H (74-106) mg/dL Troponin I Less than 0.02 L (0.02-0.05) ng/mL Short CBC 04/18/18 Range/Units 06:10 WBC 19.1 H (4.0-11.0) th/mm3 Hgb 11.1 L (11.6-15.3) gm/dL Hct 33.7 L (35.0-46.0) % Plt Count 279 (150-450) th/mm3 BMP 04/18/18 06:10 Sodium 136 Potassium 3.8 Chloride 86 L Carbon Dioxide 44.5 H BUN 24 H Creatinine 0.68 Calcium 9.1 Cardiac Enzymes 04/18/18 Range/Units 06:10 Troponin I Less than 0.02 L (0.02-0.05) ng/mL Liver Function 04/18/18 Range/Units 06:10 Total Bilirubin 0.7 (0.2-1.0) mg/dL AST 21 (15-37) U/L ALT 31 (10-53) U/L Alkaline Phosphatase 103 (45-117) U/L Albumin 3.5 (3.4-5.0) g/dL <Yazmin Rodriguez - 04/18/18 09:24> - Imaging Impressions Chest X-Ray 04/18/18 06:12 CONCLUSION: 1. There is severe airspace consolidation in the left mid and lower lung zone. This could represent a pneumonia in the appropriate clinical setting. Recommend follow-up imaging following appropriate treatment to confirm resolution. 2. Stable background lung changes characteristic of emphysema. <Yazmin Rodriguez - 04/18/18 09:24> Caprini VTE Risk Assessment Caprini VTE Risk Assessment: Moderate/High Risk (score >= 2) <Yazmin Rodriguez - 04/18/18 11:54> Caprini Risk Assessment Model: Point Value = 1 Point Value = 2 Point Value = 3 Point Value = 5 Age 41-60 Minor surgery BMI > 25 kg/m2 Swollen legs Varicose veins or History of unexplained or recurrent spontaneous Oral contraceptives or hormone replacement Sepsis (< 1 month) Serious lung disease, including pneumonia (< 1 month) Abnormal pulmonary function Acute myocardial infarction Congestive heart failure (< 1 month) History of inflammatory bowel disease Medical patient at bed rest Age 61-74 Arthroscopic surgery Major open surgery (> 45 min) Laparoscopic surgery (> 45 min) Malignancy Confined to bed (> 72 hours) Immobilizing plaster cast Central venous access Age >= 75 History of VTE Family history of VTE Factor V Leiden Prothrombin [id number] Lupus anticoagulant Anticardiolipin antibodies Elevated serum homocysteine Heparin-induced thrombocytopenia Other congenital or acquired thrombophilia Stroke (< 1 month) Elective arthroplasty Hip, pelvis, or leg fracture Acute spinal cord injury (< 1 month) <Helena Gutierrez - 04/19/18 10:27> Point Value = 1 Point Value = 2 Point Value = 3 Point Value = 5 Age 41-60 Minor surgery BMI > 25 kg/m2 Swollen legs Varicose veins or History of unexplained or recurrent spontaneous Oral contraceptives or hormone replacement Sepsis (< 1 month) Serious lung disease, including pneumonia (< 1 month) Abnormal pulmonary function Acute myocardial infarction Congestive heart failure (< 1 month) History of inflammatory bowel disease Medical patient at bed rest Age 61-74 Arthroscopic surgery Major open surgery (> 45 min) Laparoscopic surgery (> 45 min) Malignancy Confined to bed (> 72 hours) Immobilizing plaster cast Central venous access Age >= 75 History of VTE Family history of VTE Factor V Leiden Prothrombin [id number] Lupus anticoagulant Anticardiolipin antibodies Elevated serum homocysteine Heparin-induced thrombocytopenia Other congenital or acquired thrombophilia Stroke (< 1 month) Elective arthroplasty Hip, pelvis, or leg fracture Acute spinal cord injury (< 1 month) <Yazmin Rodriguez - 04/18/18 09:24> Prophylaxis Regimen: Total Risk Factor Score Risk Level Prophylaxis Regimen 0-1 Low Early ambulation 2 Moderate Order ONE of the following: *Sequential Compression Device (SCD) *Heparin 5000 units SQ BID 3-4 Higher Order ONE of the following medications: *Heparin 5000 units SQ TID *Enoxaparin/Lovenox 40 mg SQ daily (WT < 150 kg, CrCl > 30 mL/min) *Enoxaparin/Lovenox 30 mg SQ daily (WT < 150 kg, CrCl > 10-29 mL/min) *Enoxaparin/Lovenox 30 mg SQ BID (WT < 150 kg, CrCl > 30 mL/min) AND/OR *Sequential Compression Device (SCD) 5 or more Highest Order ONE of the following medications: *Heparin 5000 units SQ TID (Preferred with Epidurals) *Enoxaparin/Lovenox 40 mg SQ daily (WT < 150 kg, CrCl > 30 mL/min) *Enoxaparin/Lovenox 30 mg SQ daily (WT < 150 kg, CrCl > 10-29 mL/min) *Enoxaparin/Lovenox 30 mg SQ BID (WT < 150 kg, CrCl > 30 mL/min) AND *Sequential Compression Device (SCD) <Helena Gutierrez - 04/19/18 10:27> Total Risk Factor Score Risk Level Prophylaxis Regimen 0-1 Low Early ambulation 2 Moderate Order ONE of the following: *Sequential Compression Device (SCD) *Heparin 5000 units SQ BID 3-4 Higher Order ONE of the following medications: *Heparin 5000 units SQ TID *Enoxaparin/Lovenox 40 mg SQ daily (WT < 150 kg, CrCl > 30 mL/min) *Enoxaparin/Lovenox 30 mg SQ daily (WT < 150 kg, CrCl > 10-29 mL/min) *Enoxaparin/Lovenox 30 mg SQ BID (WT < 150 kg, CrCl > 30 mL/min) AND/OR *Sequential Compression Device (SCD) 5 or more Highest Order ONE of the following medications: *Heparin 5000 units SQ TID (Preferred with Epidurals) *Enoxaparin/Lovenox 40 mg SQ daily (WT < 150 kg, CrCl > 30 mL/min) *Enoxaparin/Lovenox 30 mg SQ daily (WT < 150 kg, CrCl > 10-29 mL/min) *Enoxaparin/Lovenox 30 mg SQ BID (WT < 150 kg, CrCl > 30 mL/min) AND *Sequential Compression Device (SCD) <Yazmin Rodriguez - 04/18/18 09:24> Assessment and Plan - Assessment (1) Sepsis Code(s): A41.9 - Sepsis, unspecified organism Status: Acute (2) Pneumonia Code(s): J18.9 - Pneumonia, unspecified organism Status: Acute (3) Fall Code(s): W19.XXXA - Unspecified fall, initial encounter Status: Acute (4) Chest pain Code(s): R07.9 - Chest pain, unspecified Status: Acute (5) Edema Code(s): R60.9 - Edema, unspecified Status: Acute (6) Anxiety Code(s): F41.9 - Anxiety disorder, unspecified Status: Acute (7) Hyperglycemia Code(s): R73.9 - Hyperglycemia, unspecified Status: Acute (8) Hospice care Code(s): Z51.5 - Encounter for palliative care Status: Acute (9) Nutrition, metabolism, and development symptoms Code(s): R63.8 - Other symptoms and signs concerning food and fluid intake Status: Acute (10) DVT prophylaxis Status: Acute <BrendaSin damicocesar Smyth - 04/19/18 10:27> (1) Sepsis Code(s): A41.9 - Sepsis, unspecified organism Status: Acute Plan: Patient tachycardic on admission at 121, elevated white blood cell count at 19.1 , identified source of infection: Pneumonia. Meets sepsis criteria On aztreonam q8, vancomycin qday, azithromycin IV qday for pneumonia coverage. Strep pneumo antigen, Legionella antigen, influenza antigen ordered. Follow-up. CBC shows elevated white blood cell count at 19.1 with high neutrophil predominant at 88.3. Follow-up CBC in a.m. No electrolyte abnormalities appreciated. Follow-up CMP in a.m. Blood cultures ordered. Follow-up ABG ordered. Follow-up lactic acid ordered. Follow-up Pro calcitonin ordered. Follow-up UA ordered. Follow-up (2) Pneumonia Code(s): J18.9 - Pneumonia, unspecified organism Status: Acute Plan: Patient currently in respiratory distress, with abdominal breathing, on 5 L of oxygen, unable to communicate during physical exam due to work of breathing. Chest x-ray: Severe air space consolidation in the left middle and lower lung zone, possible pneumonia. Patient allergic to penicillin, unsure of reaction. Last hospital visit, couple weeks ago, will treat for hospital-acquired pneumonia. Started on azithromycin IV to cover atypical. Aztreonam IV to cover gram negatives,positives and anaerobes Vancomycin IV to cover MRSA. Patient started on BiPAP for better oxygenation Albuterol as needed Solu-Medrol 120 mg IV Sputum culture ordered. Follow-up Pro calcitonin ordered. Follow-up Legionella, influenza, pneumococcal antigens ordered. Follow-up. Blood cultures ordered. Follow-up ABG ordered. Follow-up Gram stain ordered. Follow-up (3) Fall Code(s): W19.XXXA - Unspecified fall, initial encounter Status: Acute Plan: Unwitnessed fall this morning at 4 AM. Seventh fall. Previous fall 2 weeks ago. Patient denied any loss of consciousness, hitting her head, urinary incontinence. Presents with confusion/altered mental status. DDX: AMS due to mechanical fall: sepsis versus epidural/subdural hematoma. Because of patient's severe respiratory distress, will consider getting her stable before evaluating a head CT. Left and right hip x-rays ordered. Follow-up Continue treatment for pneumonia as seen and plan above. Follow-up UA for another source of infection Neuro checks every 4 Patient on telemetry continue to monitor vital signs every 4 Patient on BiPAP (4) Chest pain Code(s): R07.9 - Chest pain, unspecified Status: Acute Plan: Patient complains of substernal chest pain status post fall earlier this morning. Unsure of characteristics, location or duration of chest pain due to patient's altered mental status. EKG ordered, Follow-up. Troponins: 0.02, trend every 6 hours x2 Chest x-ray does not show any cardiac pathology BNP ordered. Follow-up. Patient placed on telemetry for further monitoring. Tylenol and morphine as needed for pain control. Monitor vital signs q4. (5) Edema Code(s): R60.9 - Edema, unspecified Status: Acute Plan: 4+ Pitting edma in the legs b/l 40 mg Lasix BID IV Continue to monitor I&Os (6) Anxiety Code(s): F41.9 - Anxiety disorder, unspecified Status: Acute Plan: patient to continue home medications. (7) Hyperglycemia Code(s): R73.9 - Hyperglycemia, unspecified Status: Acute Plan: Patient has associated hyperglycemia due to steroid doses from hospice for her COPD. Continue metformin 500 p.o. twice daily Accu-Cheks with meals (8) Hospice care Code(s): Z51.5 - Encounter for palliative care Status: Acute Plan: Patient on hospice care since September. Family states they will reach out to hospice. (9) Nutrition, metabolism, and development symptoms Code(s): R63.8 - Other symptoms and signs concerning food and fluid intake Status: Acute Plan: Fluids: None due to her edematous state. Continue to monitor. Electrolytes, monitor and replete as needed. Diet: N.p.o. (10) DVT prophylaxis Status: Acute Plan: SCDs only. <Yazmin Rodriguez - 04/18/18 12:53> - Attending Attestation The exam, history, and the medical decision-making described in the above note were completed with the assistance of the resident physician. I reviewed and agree with the findings presented. I attest that I had a [id number] encounter with the patient on the same day, and personally performed and documented my assessment and findings in the medical record. Ms Grace was extremely ill when she presented to the emergency department. Her poor sister was distressed over [facility] hospice discharging her sister as a patient just when she was in crisis. Initially her sister believed that antibiotics and fluids could help her sister to live at least a few more days. It was explained that unfortunately she was not responding to any of the treatments and that her was imminent. Hospice is greatly appreciated as they saw her inpatient and helped to explain to her sister the process that was happening. <Helena Gutierrez - 04/19/18 10:27> <Yazmin Rodriguez - Last Filed: 04/18/18 12:53> (1) Sepsis Qualifiers: Sepsis type: sepsis due to unspecified organism Qualified Code(s): A41.9 - Sepsis, unspecified organism (2) Pneumonia Qualifiers: Pneumonia type: due to unspecified organism Laterality: left Lung location: unspecified part of lung Qualified Code(s): J18.9 - Pneumonia, unspecified organism (4) Chest pain Qualifiers: Chest pain type: unspecified Qualified Code(s): R07.9 - Chest pain, unspecified <Helena Gutierrez - Last Filed: 04/19/18 10:27> (1) Sepsis Qualifiers: Sepsis type: sepsis due to unspecified organism Qualified Code(s): A41.9 - Sepsis, unspecified organism (2) Pneumonia Qualifiers: Pneumonia type: due to unspecified organism Laterality: left Lung location: unspecified part of lung Qualified Code(s): J18.9 - Pneumonia, unspecified organism (4) Chest pain Qualifiers: Chest pain type: unspecified Qualified Code(s): R07.9 - Chest pain, unspecified <Yazmin Rodriguez - Last Filed: 04/18/18 12:53> (1) Sepsis Qualifiers: Sepsis type: sepsis due to unspecified organism Qualified Code(s): A41.9 - Sepsis, unspecified organism (2) Pneumonia Qualifiers: Pneumonia type: due to unspecified organism Laterality: left Lung location: unspecified part of lung Qualified Code(s): J18.9 - Pneumonia, unspecified organism (4) Chest pain Qualifiers: Chest pain type: unspecified Qualified Code(s): R07.9 - Chest pain, unspecified <Helena Gutierrez - Last Filed: 04/19/18 10:27> (1) Sepsis Qualifiers: Sepsis type: sepsis due to unspecified organism Qualified Code(s): A41.9 - Sepsis, unspecified organism (2) Pneumonia Qualifiers: Pneumonia type: due to unspecified organism Laterality: left Lung location: unspecified part of lung Qualified Code(s): J18.9 - Pneumonia, unspecified organism (4) Chest pain Qualifiers: Chest pain type: unspecified Qualified Code(s): R07.9 - Chest pain, unspecified
--- NOTE | 2018-04-18 09:33 | ECG ---
Date Performed: 04/18/2018 Time Performed: 06:00:04 PTAGE: 68 years EKG: SINUS TACHYCARDIA POSSIBLE LEFT ATRIAL ENLARGEMENT ABNORMAL RHYTHM ECG PREVIOUS TRACING : 09/24/2016 07.00 DOCTOR: Gumaro Puga Interpretating Date/Time 04/18/2018 09:32:22
[2018-04-18] MEDS ORDERED: Bisacodyl 10 MG Supp RECTAL PRN (09:52)
[2018-04-18] MEDS ORDERED: Acetaminophen 325 MG Tablet PO PRN ×2 (09:52→10:12)
[2018-04-18] MEDS ORDERED: Vancomycin Consult Pharmacy 1 EACH OTHER SCH (10:00)
[2018-04-18] MEDS ORDERED: MethylPREDNISolone Sod Succinate Inj 125 MG/2 ML Vial IV.PUSH ONE (10:07)
[2018-04-18] MEDS ORDERED: Naloxone Inj 0.4 MG/ML Vial IV.PUSH PRN (10:12)
[2018-04-18] MEDS ORDERED: Morphine Sulfate Inj 2 MG/ML Vial IV.PUSH PRN (10:12)
[2018-04-18 10:58] LABS: ABG Base Excess 13.2 mmol/L (-2-2); ABG PCO2 104 mmHg (38-42); ABG PO2 72 mmHg (61-120)
[2018-04-18] MEDS: MethylPREDNISolone Sod Succinate Inj 125 MG/2 ML Vial IV.PUSH SCH ×2 (11:12→18:18)
[2018-04-18 11:56] LABS: Bilirubin,Urine Negative (Negative); Clarity,Urine Hazy (Clear); Color,Urine Yellow (Yellw/Straw); Glucose,Urine (UA) 50 mg/dL (Negative); Leukocyte Esterase,Urine Negative (Negative); Mucus,Urine Few /lpf (Occasional); Nitrite,Urine Negative (Negative); Squamous Epithelial Cell,Urine <1 /hpf (0-5)
[2018-04-18] MEDS ORDERED: Aztreonam Inj 2 GM in Sodium Chloride 0.9% Inj 100 ML IV.SIG SCH (12:00)
--- NOTE | 2018-04-18 14:11 | P.PNADD ---
Addendum to Inpatient Note Reason for Addendum: Additional Documentation (This patient on 2019.) Additional information: Case discussed with respiratory therapy, monogram and letter paster MD. With deterioration patient and hypercapnic ABG, patient is in danger of dying in the next few hours. Case discussed again with family and reiterated that patient is DNR/ DNI. Family has brought the paperwork confirming that patient has been DNR/DNI with hospice for a long period of time. Patient is again asked if she is not DNI, and she confirms that she is. Patient is asked if she wants to be intubated, and she confirms that she does not want to be intubated. The family is in agreement and all parties confirmed. Family would like to proceed with contacting hospice in proceeding with comfort care. Hospice called.
[2018-04-18] MEDS: Morphine Inj 4 MG/ML Vial IV.PUSH PRN ×2 (16:09→18:50)
[2018-04-18] MEDS ORDERED: Morphine Inj 4 MG/ML Vial IV.PUSH ONE (20:09)
[2018-04-18] MEDS ORDERED: LORazepam 1 MG Tablet PO SCH (21:00)
[2018-04-19] MEDS ORDERED: Azithromycin Inj 500 MG in Sodium Chlor 0.9% Inj 250 ML IV.SIG SCH (08:00)
--- NOTE | 2018-04-19 08:27 | ECG ---
Date Performed: 04/18/2018 Time Performed: 20:37:44 PTAGE: 68 years EKG: ATRIAL FIBRILLATION LEFT BUNDLE BRANCH BLOCK ABNORMAL ECG PREVIOUS TRACING : 04/18/2018 12.16 DOCTOR: Gumaro Puga Interpretating Date/Time 04/19/2018 08:25:12
--- NOTE | 2018-04-19 08:38 | ECG ---
Date Performed: 04/18/2018 Time Performed: 12:16:23 PTAGE: 68 years EKG: SINUS TACHYCARDIA WITH SHORT MD INTERVAL POSSIBLE LEFT ATRIAL ENLARGEMENT ABNORMAL RHYTHM E CG PREVIOUS TRACING : 04/18/2018 06.00 DOCTOR: Gumaro Puga Interpretating Date/Time 04/19/2018 08:31:11
[2018-04-19] MEDS ORDERED: Vancomycin Inj 1,000 MG in Sodium Chlor 0.9% Inj 250 ML IV.SIG SCH (09:00)
[2018-04-21] MEDS ORDERED: Pharmacy Ordered Lab Info OTHER ONE (08:45)
== END 2018-04-18 21:00 | disposition expired ==
LOC: NEPE 05:46 → NEDA 08:45 → N07 16:53
PROVIDERS: ADMIT Family Medicine; ATTEND Family Medicine